=== PATIENT | female | born 1950 | race Native Hawaiian/Other Pacific Islander ===

== ENCOUNTER 2017-10-10 09:26 | Outpatient (CLI) | payer MEDICARE | END 2017-10-10 09:27 | disposition home or self-care (01) | LOC: LAB 09:26 | PROVIDERS: ATTEND Specialist | DX: M31.6 Other giant cell arteritis (principal) | CPT/HCPCS: 36415; 85652 ==

== ENCOUNTER 2017-12-26 07:25 | Day surgery (SDC) | payer MEDICARE ==
[~2017-12-26 07:25] MED LIST: ANCEF/STERILE WATER 2 GM/20 ML 2 GM/20 ML SYRINGE IV NR; NACL 0.9% 1000 ML 1,000 ML IV SCH
[2017-12-26 10:23] VITALS: BP 126/80
[2017-12-26] MEDS ORDERED: XYLOCAINE 1% 20 mL ONE (11:42)
[2017-12-26] MEDS ORDERED: MARCAINE 0.5% 30 ML INFILTRATI ONE (11:42)
[2017-12-26] MEDS ORDERED: XYLOCAINE 1% 20 mL INFILTRATI ONE (12:00)
[2017-12-26] MEDS ORDERED: MARCAINE 0.5% INFILTRATI ONE (12:00)
[2017-12-26] MEDS ORDERED: NACL 0.9% IR ONE (12:00)
--- NOTE | 2017-12-26 13:24 | Short Stay Summary ---
Short Stay Documentation Date of service: 12/26/17 - History H&P: obtained from office - Allergies and Medications Current Medications: Allergies No Known Allergies Allergy (Verified 12/24/17 20:40) Home Medications Medication Instructions Recorded Confirmed Last Taken Type Gabapentin [Neurontin] 300 mg PO PRN PRN 12/24/17 12/24/17 Unknown History Meloxicam 15 mg PO DAILY 12/24/17 12/24/17 Unknown History - Brief post op/procedure progress note Date of procedure: 12/26/17 Pre-op diagnosis: temporal arteritis Post-op diagnosis: same Procedure: bilateral temoral artery biopsy Anesthesia: local Findings: good samples-,no obvious inflammation Surgeon: MARILU LINK Estimated blood loss: minimal Pathology: list (bialteral temporal arteries) Specimen disposition: to lab Condition: stable - Hospital course Hospital course: benign - Disposition Condition at discharge: Stable Disposition: DC-01 TO HOME OR SELFCARE - Discharge Diagnoses (1) Temporal arteritis Status: Acute Short Stay Discharge Plan Activity: advance as tolerated Weight Bearing Status: Full Weight Bearing Diet: regular Wound: keep clean and dry Special Instructions: no heavy lifting Follow up with: SOLEDAD WILSON III, REFRIGERATION SPECIALIST-BC [Primary Care Provider] - 7 Days BRIONNA VILLANUEVA MD [Referring] - 7 Days Prescriptions: HYDROcodone/APAP 5-325 [Jarales 5/325] 1 each PO Q6HR PRN #20 tablet PRN Reason: Pain
--- NOTE | 2018-01-08 11:01 | Operative Report ---
Operative Report Operative Report: Date of procedure: 12/26/2017 Pre-operative diagnosis: [Temporal arteritis Postop diagnosis: [Same] Procedure name(s): [Bilateral temporal artery biopsy] Surgeon: Ramos Castro MD Anesthesia: [Local] EBL: [Minimal] Specimen(s): [Temporal arteries] Complications: [None] Findings: [Vessels grossly normal] Procedure: [Patient in supine position with the head rotated to the right the left preauricular area was then prepped and draped using standard sterile technique. Through anesthetized skin over vertical incision was made extending just above the ear to the penicle. Incision was then sharply deepened until the fascia was encountered below that level the artery was immediately identified and mobilized and ligated proximally and distally. A 1-1/2 cm segment was then removed and placed in specimen cup for permanent sections. The incision was then blocked using 0.5% Marcaine and then closed in layers using interrupted 3-0 Vicryl for the subcutaneous and 4-0 Monocryl subcuticular. The skin was sealed with octylseal. After the skin seal bonded, the patient's table was rotated to the left and the right preauricular area was prepped and draped using identical technique. A symmetrical incision was then placed and the same procedure was then followed thus mobilizing ligating and excising a 1-1/2 cm segment of the superficial temporal artery. Hemostasis was excellent and the incision was then blocked with Marcaine and closed again using 3-0 Vicryl interrupted subcutaneous with 4-0 Monocryl subcuticular suture. The skin was sealed with octylseal. Patient then was returned to the supine position and discharged home in stable condition having tolerated procedure well. Sponge and needle counts correct. Specimens were sent to the lab for permanent sectioning.]
== END 2017-12-26 13:19 | disposition home or self-care (01) ==
LOC: OR 07:25
PROVIDERS: ATTEND Surgery Vascular Surgery
DX: M31.6 Other giant cell arteritis (principal); I70.8 Atherosclerosis of other arteries; E11.40 Type 2 diabetes mellitus with diabetic neuropathy, unspecified; I10 Essential (primary) hypertension; Z90.49 Acquired absence of other specified parts of digestive tract; Z98.890 Other specified postprocedural states; Z87.891 Personal history of nicotine dependence
CPT/HCPCS: 88305; 88313